=== PATIENT | female | born 1975 | race Caucasian/White ===

== ENCOUNTER 2017-07-30 17:30 | Emergency (ER) | payer OTHER, MEDICAID ==
[2017-07-30 18:28] VITALS: BP 130/81
[2017-07-30] MEDS ORDERED: Penicillin VK TAB* 250 MG PO ONE ×2 (18:36→18:38)
[2017-07-30] MEDS ORDERED: HYDROcodone/ACETAMIN 5-325 MG* 1 TAB PO ONE (18:37)
--- NOTE | 2017-07-30 18:44 | UC ---
Pb Khan Tecjoon, scribed for Lj Woods MD on 07/30/17 at 1842 . Dental HPI - HPI Summary HPI Summary: This patient is a 41 year old female presenting to [facility] by with a chief complaint of right tooth pain since yesterday. Patient states the tooth had been bothering her slightly for days, but when she woke up yesterday, she noticed the right side of her face was swelling and the pain radiated upwards to her right eye area as well. The pain is rated 0/10 in severity currently. Symptoms aggravated by bending over. Symptoms alleviated by OTC medication. Patient denies ear pain - History of Current Complaint Chief Complaint: UCGeneralIllness Stated Complaint: TOOTH PAIN Time Seen by Provider: 07/30/17 18:31 Hx Obtained From: Patient Hx Last Menstrual Period: 07/10/2017 Onset/Duration: Gradual Onset, Lasting Days - 1, Still Present Severity: Mild Pain Intensity: 0 Pain Scale Used: 0-10 Numeric Aggravating Factor(s): Other - bending over Alleviating Factor(s): OTC Meds - Allergies/Home Medications Allergies/Adverse Reactions: Allergies Allergy/AdvReac Type Severity Reaction Status Date / Time No Known Allergies Allergy Verified 09/03/13 08:47 PMH/Surg Hx/FS Hx/Imm Hx - Additional Past Medical History Additional PMH: negative: legally blind, deafness Previously Healthy: Yes Cardiovascular History: Other Other Cardiovascular History: negative: cardiac disease - Surgical History Surgical History: Yes Surgery Procedure, Year, and Place: C SECTION 2008, [facility] [place]. EAR TUBES X2 AGE 8 - Social History Lives: With Family Alcohol Use: Rare Alcohol Amount: 2 PER MONTH Substance Use Type: None Smoking Status (MU): Light Every Day Tobacco Smoker Amount Used/How Often: 1/2 PACK A DAY Review of Systems Constitutional: Negative - fever ENT: Negative - ear ache, Dental Pain All Other Systems Reviewed And Are Negative: Yes Physical Exam Triage Information Reviewed: Yes Vital Signs: Initial Vital Signs Temp 98.5 F 07/30/17 18:21 Pulse 94 07/30/17 18:21 Resp 16 07/30/17 18:21 BP 130/81 07/30/17 18:21 Pulse Ox 100 07/30/17 18:21 - Additional Comments General: well-appearing, no pain distress Skin: warm, color reflects adequate perfusion, dry Head: normal Eyes: EOMI, KEVIN ENT: Right upper anterior molar is missing with exception of small piece of tooth. Gingival swelling Neck: supple, nontender Respiratory: CTA, breath sounds present Cardiovascular: RRR Abdomen: soft, nontender Bowel: present Musculoskeletal: normal, strength/ROM intact Neurological: normal, sensory/motor intact, A&O x3 Psychological: affect/mood appropriate Dental Complaint Course/Dx - Course Course Of Treatment: BP noted and advised to follow up with PCP - Differential Dx/Diagnosis Provider Diagnoses: DENTAL ABSCESS Discharge - Discharge Plan Condition: Stable Disposition: HOME Prescriptions: HYDROcodone/ACETAMIN 5-325 MG* [[place] 5-325 TAB*] 1 tab PO Q4H PRN #10 tab MDD 6 PRN Reason: Pain Penicillin VK 500 MG TAB(NF) [Penicillin VK 500 mg Tab] 500 mg PO QID #38 tab Patient Education Materials: Dental Abscess (ED) Referrals: Salvador Garrett MD [Primary Care Provider] - Additional Instructions: Your blood pressure was elevated during todays visit; please follow up with your primary care provider within a week for further evaluation FOLLOW UP WITH YOUR DENTIST. GET RECHECKED FOR ANY WORSENING OF YOUR CONDITION OR QUESTIONS OR CONCERNS. The documentation as recorded by the Pb lucio Tecjoon accurately reflects the service I personally performed and the decisions made by me, Lj Woods MD.
== END 2017-07-30 18:55 | disposition home or self-care (01) ==
LOC: UCEAST 17:30
DX: K04.7 Periapical abscess without sinus (principal); Z72.0 Tobacco use
CPT/HCPCS: 99203; A9270-GY; G0463